=== PATIENT | female | born 1980 | race African-American/Black ===

== ENCOUNTER 2016-11-15 17:18 | Emergency (ER) | payer MEDICAID ==
[~2016-11-15] VITALS: Ht 157.5 cm; Wt 63.0 kg
[2016-11-15 17:35] VITALS: BP 132/83
== END 2016-11-15 18:54 | disposition left against medical advice (07) ==
LOC: ER 18:50
DX: Z53.21 Procedure and treatment not carried out due to patient leaving prior to being seen by health care provider (principal)

== ENCOUNTER 2024-09-20 22:53 | Emergency (ER) | payer MEDICAID ==
[~2024-09-20] VITALS: Ht 157.5 cm; Wt 86.1 kg
[2024-09-20 23:08] VITALS: O2SAT 98
[2024-09-21] MEDS ORDERED: DIPH25CA83 MT (01:13)
[2024-09-21 01:25] VITALS: BP 123/78; PULSE 74; RESP 18; TEMP 36.7; O2SAT 97
== END 2024-09-21 01:29 | disposition home or self-care (01) ==
LOC: ER 22:53
DX: T78.40XA Allergy, unspecified, initial encounter (principal); D64.9 Anemia, unspecified; Z90.49 Acquired absence of other specified parts of digestive tract; X58.XXXA Exposure to other specified factors, initial encounter; Y93.89 Activity, other specified; Y92.89 Other specified places as the place of occurrence of the external cause; Y99.8 Other external cause status
CPT/HCPCS: 99282